=== PATIENT | female | born 1940 | race Caucasian/White ===

== ENCOUNTER 2018-08-18 15:36 | Inpatient (IN) ==
[2018-08-18] MEDS ORDERED: Ondansetron 4 MG/2 ML VIAL IVP PRN (20:58)
[2018-08-18] MEDS ORDERED: Ketorolac 15 MG/ML VIAL IVP PRN (20:58)
[2018-08-18] MEDS ORDERED: Ketorolac 30 MG/ML VIAL IVP PRN (20:58)
[2018-08-18] MEDS ORDERED: Naloxone 0.4 MG/ML INJ IVP PRN (20:58)
--- NOTE | 2018-08-18 21:37 | Internal Med History&Physical ---
Date of Encounter: 08/18/18 Time of Encounter: 20:30 Internal Medicine - H&P: HPI Chief complaint: Left hip fracture Admitted From: Emergency Dept Plans for Post Hospital Care: Home History of present illness: Ms. Palacios is a 77 year old female Patient was playing pickle ball this afternoon when she went for the ball rotated on her left leg and fell on her left side. She had immediate pain upon trying to get up, an ambulance was called to transport her to the [place] emergency room. At the [place] ER, patient's initial vital signs were within normal limits, CBC and BMP as well as INR were also within normal limits. Urinalysis was negative for infection. Chest x-ray showed no acute abnormality, and left hip/femur x-ray revealed acute intertrochanteric fracture of the left hip. The x-ray also demonstrated severe degenerative changes in the left hip. Atherosclerotic calcifications are present. EKG showed sinus rhythm with no acute ischemic changes. Dr. Rincon of orthopedic surgery was notified, and agreed to see the patient in the morning. Patient was transferred to [facility] for further management. Upon my evaluation, patient is resting comfortably in the hospital bed in no ac veronique distress. Her is at bedside. She confirms the history above, stating that she recently got into [employer] ball, and she has had previous operations on her foot. She did not hit her head when she fell and she denies other injuries. She has a past medical history of osteoarthritis, but otherwise does not take medications and has no other medical problems. She denies chest pain, abdominal pain, nausea, vomiting, diarrhea and constipation. She denies significant family history, but osteoarthritis is present in multiple other family members. She is a full code. Past Med Surg Social Fam HX - Past Medical History Medical history: osteoporosis, thyroid disease Psychiatric history: no psych history - Past Surgical History Additional surgical history: MULTIPLE ORTHO SURGERIES ON RT FOOT/TOES/HEEL. - Social History Smoking Status: Never smoker Alcohol use: none Drug use: none Internal Medicine - H&P: Meds Levothyroxine [Synthroid] 0.5 mcg PO Q48H 08/18/18 [History] Allergy/AdvReac Type Severity Reaction Status Date / Time cinnamon Allergy Difficulty Verified 08/18/18 14:40 Breathing latex Allergy Difficulty Verified 08/18/18 14:40 Swallowing All Systems PM: A 10-system review of systems was performed and is negative for pertinent findings except as documented above in the HPI. - Constitutional Vitals: Temp Pulse Resp BP Pulse Ox 98.2 F 60 17 135/74 97 08/18/18 20:13 08/18/18 20:13 08/18/18 20:13 08/18/18 20:13 08/18/18 20:13 General appearance: Present: cooperative, A&O X 3, pleasant, no acute distress, answers questions appropriately Exam: - - Head Head exam: Present: normal inspection - Eye Eye exam: Present: EOMI, normal appearance - Respiratory Respiratory exam: Absent: CTAB, rales, respiratory distress, rhonchi, wheezes - Cardiovascular Cardiovascular exam: Present: RRR. Absent: diastolic murmur, systolic murmur - GI/Abdominal GI/Abdominal exam: Present: normal bowel sounds, soft. Absent: tenderness - Extremities Exam Extremities exam: Present: tenderness, warm, radial pulses palpable and symmetrical. Absent: calf tenderness, pedal edema Additional comments: Left lateral hip tenderness Pulses and sensation intact bilaterally lower extremities - Neurological Exam Neurological exam: Present: no focal deficits, strengths equal and symetr throughout. Absent: motor sensory deficit, facial droop, speech deficit - Skin Skin exam: Present: dry, normal color, warm - Assessment and Plan (1) Fracture, intertrochanteric, left femur Current Visit: No Status: Acute Assessment and plan: patient was playing pickle ball, fell on left side, resulting in a fracture of the left hip. X-ray confirms fracture, also demonstrated severe degenerative changes of the hip as well. Orthopedic surgery was called from the ER. Follow up orthopedic surgery recommendations NPO after midnight Pain management as need. Patient prefers non-narcotic pain meds Qualifiers: Encounter type: initial encounter Fracture type: closed Fracture alignment: displaced Qualified Code(s): S72.142A - Displaced intertrochanteric fracture of left femur, initial encounter for closed fracture (2) Osteoarthritis Current Visit: Yes Status: Acute Assessment and plan: Takes naproxen at home. Continue to monitor Qualifiers: Osteoarthritis location: hip Osteoarthritis type: primary Laterality: unspecified laterality Qualified Code(s): M16.10 - Unilateral primary oste oarthritis, unspecified hip (3) DVT prophylaxis Current Visit: Yes Status: Acute Assessment and plan: SCDs - Time Spent With Patient Total time spent is greater than 50% in coordination of care (as documented) at patient's floor/unit and/or counseling patient: Greater than 35 minutes
[2018-08-18] MEDS ORDERED: 0.9 % Sodium Chloride 1,000 ML IVC ONE (21:50)
[2018-08-19 07:06] LABS: Hematocrit 32.7 % (35.3-44.9); Mean Corpuscular HGB Conc 33.6 g/dL (31.6-35.5); Mean Corpuscular Volume 95.1 fL (83.0-100.0); Mean Platelet Volume 8.7 fL (9.4-12.4); Platelet Count 221 K/mcL (140-400); Red Blood Count 3.44 M/mcL (3.82-4.97); Red Cell Distribution Width 12.9 % (11.5-14.5)
[2018-08-19 07:20] LABS: Prothrombin Time 11.7 Seconds (9.4-12.1)
[2018-08-19 07:25] LABS: BUN/Creatinine Ratio 31 (6-26); Blood Urea Nitrogen 14 mg/dL (8-23); Calcium 8.8 mg/dL (8.6-10.3); Carbon Dioxide 24 mEq/L (23-29); Chloride 107 mEq/L (98-107); Glucose 100 mg/dL (70-105); Osmolality,Calculated 285 (280-300); Potassium 3.8 mEq/L (3.5-5.1); Sodium 137 mEq/L (136-145); eGFR For Non-African Americans > 60 (> 60)
[2018-08-19] MEDS ORDERED: *HR* Propofol 200 MG/20 ML VIAL IVP ONE (07:50)
[2018-08-19] MEDS ORDERED: *HR* Midazolam HCl 2 MG/2 ML VIAL ONE (07:50)
[2018-08-19] MEDS ORDERED: *HR* FentaNYL (PF) 100 MCG/2 ML VIAL ONE (07:50)
[2018-08-19] MEDS ORDERED: *HR* Rocuronium Bromide 50 MG/5 ML VIAL ONE (07:52)
[2018-08-19] MEDS ORDERED: Dexamethasone 4 MG/ML VIAL ONE (07:52)
[2018-08-19] MEDS ORDERED: Lidocaine -MPF 1% 5 ML AMPUL ONE (07:52)
[2018-08-19] MEDS ORDERED: *HR* Succinylcholine 200 MG/10 ML VIAL IVP ONE (07:52)
[2018-08-19] MEDS ORDERED: Ondansetron 4 MG/2 ML VIAL ONE (07:52)
[2018-08-19] MEDS ORDERED: Lidocaine -MPF 4% 5 ML AMPUL ONE (07:54)
--- NOTE | 2018-08-19 07:58 | Anesthesia Evaluation PreOp ---
Date of Encounter: 08/19/18 Time of Encounter: 07:56 - Past History Planned Operation: Left hip TFN Cardiac History: Denies any Significant Hx Pulmonary History: Denies Any Significant HX [employer] History: Denies Any Significant HX Other Medical History: Thyroid, Other (osteoporosis, osteoarthritis) Anesthesia History: No Prior Anesthetic Complications, Past Anesthesia (ortho paedic surgery on foot, inguinal hernia repair, tonsillectomy, eye surgeryf) Alcohol Use: none Drug use: none Medications and Allergies Levothyroxine [Synthroid] 0.5 mcg PO Q48H 08/18/18 [History] Allergy/AdvReac Type Severity Reaction Status Date / Time bacitracin Allergy Swelling Verified 08/19/18 08:43 of the Eye cinnamon Allergy Difficulty Verified 08/18/18 14:40 Breathing latex Allergy Difficulty Verified 08/18/18 14:40 Swallowing - Meds/Allergy Pre-op Review Medications Reviewed: Yes Allergies Reviewed: Yes Beta Blockers on Current Med List: No Anesthesia Results - Labs 08/19/18 06:57 08/19/18 06:57 - Imaging EKG: report reviewed Chest x-ray: image reviewed (SR with first degree AVB; pattern consistent with pulmonary disease; left anterior fasicular block; septal [place] indeterminate age) Anesthesia Exam Last Vital Signs Temp 98.5 F 08/19/18 06:41 Pulse 59 08/19/18 06:41 Resp 15 08/19/18 06:41 BP 124/71 08/19/18 06:41 Pulse Ox 99 08/19/18 06:41 Weight: 61 kg NPO (# of Hours): > 8 hrs - HEENT Pupil (Motor): Pupils equal, EOMI Mallampati: III Teeth: Normal Oral Opening: Greater than 3 - [employer] LOC: Oriented - Cardiac Rhythm: Regular Murmur: None - Pulmonary Breath Sounds: bilateral Clear Respiratory Effort: Symmetrical Anesthesia Assess/Plan ASA Score: 2 Level of consciousness: Cooperative Anesthetic Plan: General Monitoring Plan: Standard Monitors Recovery Plan: PACU
--- NOTE | 2018-08-19 08:05 | Internal Med Progress Note ---
<PandaManuela M - Last Filed: 08/19/18 12:16> Hospitalist Progress Note - Encounter Date of Encounter: 08/19/18 - Exam Vitals: Temp Pulse Resp BP Pulse Ox 97.9 F 68 15 109/46 94 08/19/18 11:33 08/19/18 11:33 08/19/18 11:33 08/19/18 11:33 08/19/18 11:33 - Time Spent with Patient Total time spent is greater than 50% in coordination of care (as documented) at patient's floor/unit and/or counseling patient: Internal Medicine: Result - Labs CBC & Chem 7: 08/19/18 06:57 08/19/18 06:57 Labs: Short CBC 08/19/18 Range/Units 06:57 WBC 6.9 (4.3-11.1) K/mcL Hgb 11.0 L D (11.5-15.4) g/dL Hct 32.7 L (35.3-44.9) % Plt Count 221 (140-400) K/mcL BMP 08/19/18 06:57 Sodium 137 Potassium 3.8 Chloride 107 Carbon Dioxide 24 BUN 14 Creatinine 0.45 L Glucose 100 Calcium 8.8 - ABG Interpretation ABG results: PT/INR, D-dimer PT 11.7 Seconds (9.4-12.1) 08/19/18 06:57 - Impressions Impressions Fluoroscopy 08/19/18 09:50 IMPRESSION: 1. See above. D/ / Wilber Beaulieu MD / Wilber Beaulieu MD Interpreting Provider: Wilber Beaulieu MD Consult Discharge Plan - Plan Referrals: Shantell Bryson, PERSONAL PROPERTY ASSESSOR [Primary Care Provider] - - Attending Attestation I examined this patient and my medical decision-making was reviewed with the Resident Physician Dr Elliott. I agree with the documented findings, disposition and treatment plan as described except to the extent set forth below. Mrs Palacios is admitted for left hip fracture requiring surgical intervention awake, very pleasant, at bedside. She has pain left hip but tolerable and resting comfortably. no history of cp, pressure, palpitations or sob. was playing a very aggressive gme of pickle ball when fall occurred. she will go to OR this morning gen- alert, awake,appears stated age eyes- pupils equal round cv- reg rate and rhythm, normal s1,s2, no murmurs appreciated, no le edema, warm ext lungs- ctabl, no wheezing, rhonchi or crackles, normal reps effort abd- soft, non tender, non distended, + bs msk- left leg shortened and rotated neuro- AAOx3, CN grossly intact, no focal deficits Left Hip fracture -to OR with ortho today, prn pain control, post op care as per ortho Pre op risk assessment EKG reviewed >10 mets activity without symptoms RCRI zero points/class I risk, no further work up is recommended pre operatively OA- on nsaid at home Acute blood loss anemia pre operatively Hgb 11- likely 2/2 fluids, fx, lood draws, asx, hemodynamically stable- will monitor post op further diagnoses and plan as noted by resident <Hector Elliott - Last Filed: 08/19/18 16:52> Hospitalist Progress Note - Encounter Date of Encounter: 08/19/18 Time of Encounter: 14:47 - Subjective Interval History: Patient was seen and examined at bedside this morning. She is admitted for a left hip fracture. She was seen after her surgery this morning. She reports that it went well and she is having no pain at this time. Denies, nausea, vomiting, chest pain, KWAME, numbness, tingling. - Exam Vitals: Temp Pulse Resp BP Pulse Ox 98.5 F 59 15 124/71 99 08/19/18 06:41 08/19/18 06:41 08/19/18 06:41 08/19/18 06:41 08/19/18 06:41 Exam: Gen.: Vitals noted. No acute distress. AAOx3, sitting comfortably at bedside. HEENT: PERRL/EOMI, oropharynx clear, Normocephalic, atraumatic, MMM Cardiac: RRR, no murmur, +S1/S2, No BLE edema Pulmonary: CTA bilaterally, no wheezes, rales or rhonchi, equal chest expansion, unlabored breathing Abdomen: soft, nontender, BS noted, no guarding, no palpable HSM Skin: warm and dry, no visible lesions. Dressing clean and dry. MSK: ROM intact, no joint swelling noted, gait no assessed while in bed. Non tender calf or clubbing Neuro: A&Ox3, moves all extremities, no focal deficits, sensation intact, Psych: Appropriate mood and behavior, AOx3 - Assessment and Plan (1) Fracture, intertrochanteric, left femur Current Visit: Yes Status: Acute Assessment and Plan: - POD #0 for left hip cephalomedullary nail of left hip following mechanical injury - Tolerated surgery well. - No pain at this time, has PRN meds - PT/OT consulted, will eval to determine placement - Ortho following. - Will trend labs in the morning. (2) Anemia Current Visit: Yes Status: Acute Assessment and Plan: - Acute drop from 12.6 to 11.0 - Suspect that this is dilutional. No obvious bleeding on exam - Asymptomatic - Will continue to monitor after surgery - Transfuse as necessary - On lovenox per Ortho (3) Osteoarthritis Current Visit: Yes Status: Acute Assessment and Plan: PRN meds as above (4) DVT prophylaxis Current Visit: Yes Status: Acute Assessment and Plan: lovenox - Time Spent with Patient Total time spent is greater than 50% in coordination of care (as documented) at patient's floor/unit and/or counseling patient: Internal Medicine: Result - Labs CBC & Chem 7: 08/19/18 06:57 08/19/18 06:57 Labs: Short CBC 08/19/18 Range/Units 06:57 WBC 6.9 (4.3-11.1) K/mcL Hgb 11.0 L D (11.5-15.4) g/dL Hct 32.7 L (35.3-44.9) % Plt Count 221 (140-400) K/mcL BMP 08/19/18 06:57 Sodium 137 Potassium 3.8 Chloride 107 Carbon Dioxide 24 BUN 14 Creatinine 0.45 L Glucose 100 Calcium 8.8 - ABG Interpretation ABG results: PT/INR, D-dimer PT 11.7 Seconds (9.4-12.1) 08/19/18 06:57 <LexiHector - Last Filed: 08/19/18 16:52> (1) Fracture, intertrochanteric, left femur Qualifiers: Encounter type: initial encounter Fracture type: closed Fracture alignment: displaced Qualified Code(s): S72.142A - Displaced intertrochanteric fracture of left femur, initial encounter for closed fracture (2) Anemia Qualifiers: Anemia type: unspecified type Qualified Code(s): D64.9 - Anemia, unspecified (3) Osteoarthritis Qualifiers: Osteoarthritis location: hip Osteoarthritis type: primary Laterality: unspecified laterality Qualified Code(s): M16.10 - Unilateral primary osteoarthritis, unspecified hip
[2018-08-19] MEDS ORDERED: Acetaminophen IV 1,000 MG/100 ML INFUS..BTL ONE (08:42)
--- NOTE | 2018-08-19 08:55 | History & Physical Report ---
Date of Encounter: 08/19/18 Time of Encounter: 08:55 24 Hour HP Update - Instructions Instructions: If the History and Physical is less than 30 days old and was completed prior to A.M. admission and or procedure and has NOT been updated on calendar day of procedure please complete this update prior to performing procedure. - Update Patient reports changes in Medical Condition: No Changes in examination, assessment, or condition: No Changes in Medication: No Preop tests/diagnostics Reviewed: Yes Surgery Remains Indicated: Yes Consent for Planned Operative Procedure(s) Verified: Yes
[2018-08-19] MEDS ORDERED: EPHEDrine 50 MG/ML VIAL ONE (09:52)
[2018-08-19] MEDS ORDERED: ceFAZolin 2,000 MG in Water for inj. (sterile) 20 ML IVP ONE (10:08)
--- NOTE | 2018-08-19 10:52 | Orthopedic Consult Note ---
Date of Encounter: 08/19/18 Time of Encounter: 10:51 Assessment and Plan (1) Fracture, intertrochanteric, left femur Current Visit: No Status: Acute After discussing the pros and cons of treatment options including non-operative and operative intervention with the patient, to allow for early mobility and pain control, they have elected to proceed with left hip cephalomedullary nail at this time. The risks and benefits of the procedure were fully explained in detail, including but not limited to the risk of infection, neurovascular injury, continued pain or stiffness, failure of surgery, reinjury, or need for additional surgery, DVT, PE, general risks of anesthesia and loss of limb or life. No guarantees were given or implied and all questions were answered. The patient understands all the risks and does wish to proceed with written consent. Surgery will be scheduled in a timely manner. Qualifiers: Encounter type: initial encounter Fracture type: closed Fracture alignment: displaced Qualified Code(s): S72.142A - Displaced intertrochanteric fracture of left femur, initial encounter for closed fracture History of Present Illness HPI: Ms. Palacios is a 77 year old female with PMHx of OA who was playing Phan[employer] ball this afternoon when she went for the ball rotated on her left leg and fell on her left side. She had immediate pain upon trying to get up, an ambulance was called to transport her to the [place] emergency room. At the [place] ER left hip/femur x-ray revealed acute intertrochanteric fracture of the left hip. Patient was transferred to [facility] for further management. She denies chest pain, SOB or LOC or any head injury. Past Med Surg Social Fam HX - Past Medical History Medical history: osteoporosis, thyroid disease Psychiatric history: no psych history - Past Surgical History Additional surgical history: MULTIPLE ORTHO SURGERIES ON RT FOOT/TOES/HEEL. - Social History Smoking Status: Never smoker Alcohol use: none Drug use: none Medications and Allergies Levothyroxine [Synthroid] 0.5 mcg PO Q48H 08/18/18 [History] Allergy/AdvReac Type Severity Reaction Status Date / Time bacitracin Allergy Swelling Verified 08/19/18 08:43 of the Eye cinnamon Allergy Difficulty Verified 08/18/18 14:40 Breathing latex Allergy Difficulty Verified 08/18/18 14:40 Swallowing All Systems Reviewed: The remainder of the systems were reviewed and are negative except as noted in the HPI Physical Exam - Constitutional Vitals: Temp Pulse Resp BP Pulse Ox 98.5 F 59 15 124/71 99 08/19/18 06:41 08/19/18 06:41 08/19/18 06:41 08/19/18 06:41 08/19/18 06:41 Exam: Consult Exam: Constitutional -Vitals reviewed -The patient is well developed and well nourished. -Mood is pleasant. -The patient is well groomed. Psychiatric -The patient is fully alert and oriented x 3. Respiratory: -Respiratory effort normal Abdomen: -Soft abdomen -Non tender -Non distended: Left upper extremity: -No deformities. The overlying skin is intact. No obvious signs of acute tr auma. -No tenderness to palpation throughout. -No significant pain with passive motion of the shoulder, elbow, wrist, and fingers within the limits of the bed. -Able to make an "OK" sign, cross the index and long fingers, and extend the thumb. -Sensation grossly intact to light touch throughout the median, radial, and ulnar distributions. -Radial pulse is present; Fingers have good capillary refill. Right upper extremity: -No deformities. The overlying skin is intact. No obvious signs of acute trauma. -No tenderness to palpation throughout. -No significant pain with passive motion of the shoulder, elbow, wrist, and fingers within the limits of the bed. -Able to make an "OK" sign, cross the index and long fingers, and extend the thumb. -Sensation grossly intact to light touch throughout the median, radial, and ulnar distributions. -Radial pulse is present; Fingers have good capillary refill. Left lower extremity: -Hip short and externally rotated. Tender to palpation over lateral hip. -Pain with logroll and internal rotation. -Able to dorsiflex and plantarflex the ankle and toes. -Sensation is grossly intact to light touch throughout the sural, saphenous, superficial peroneal, and deep peroneal distributions. -Toes have good capillary refill. Right lower extremity: -No deformities. The overlying skin is intact. No obvious signs of acute trauma. -No tenderness to palpation throughout. -No pain with passive motion of the hip, knee, ankle, and toes within the limits of the bed. -No pain with axial loading of the thigh. -Able to dorsiflex and plantarflex the ankle and toes. -Sensation is grossly intact to light touch throughout the sural, saphenous, superficial peroneal, and deep peroneal distributions. -Toes have good capillary refill. Results - Labs Result Diagrams: 08/19/18 06:57 08/19/18 06:57 Labs: Abnormal lab results RBC 3.44 M/mcL (3.82-4.97) L 08/19/18 06:57 Hgb 11.0 g/dL (11.5-15.4) L D 08/19/18 06:57 Hct 32.7 % (35.3-44.9) L 08/19/18 06:57 MPV 8.7 fL (9.4-12.4) L 08/19/18 06:57 0.45 mg/dL (0.60-1.20) L 08/19/18 06:57 31 (6-26) H 08/19/18 06:57 H & H 08/19/18 Range/Units 06:57 Hgb 11.0 L D (11.5-15.4) g/dL Hct 32.7 L (35.3-44.9) % All other labs normal. - Diagnostic results Hip x-ray: report reviewed, image reviewed (Left hip minimally displaced intertrochanteric fracture.) Consult Discharge Plan - Plan Referrals: Shantell Bryson, ANA [Primary Care Provider] -
--- NOTE | 2018-08-19 11:22 | Anesthesia Evaluation Post Op ---
Date of Encounter: 08/19/18 Time of Encounter: 11:21 - Vital Signs Vital Signs: Last Vital Signs Temp 98.4 F 08/19/18 11:13 Pulse 69 08/19/18 11:13 Resp 16 08/19/18 11:13 BP 138/72 08/19/18 11:05 Pulse Ox 99 08/19/18 11:05 - Lungs Lungs: Clear Ascult./Percussion - Airway Airway: Non-obstructed - Cardiovascular Regular Rate - Mental Status Mental Status: Alert & Oriented, Answers Appropriately - Pain Pain Scale: 1 - Nausea Vomiting Nausea Vomiting: Not Present - Hydration Hydration: NPO - Discharge PostOp Status: Transfer Patient to floor
--- NOTE | 2018-08-19 13:27 | Orthopedic Operative Note ---
Date of procedure: 08/19/18 Procedure: Procedure: Left hip cephalomedullary nail Preoperative diagnosis: Left hip intertrochanteric fracture Postoperative diagnosis: Same Surgeon: Jude Rincon MD Anesthesia: General EBL: 100 cc Complications: None Components used: Synthes TFNA 10 x 170 mm/130 degree nail, 95 mm helical blade, 5.0 x 30 mm locking screw Indications: This is an 77 yo female who sustained a mechanical fall onto her left side, causing her left hip pain and deformity. She was brought to an outside emergency department and imaging confirmed a left hip intertrochanteric fracture, she was then transferred to our facility for definitive management. After discussing the procedure at length, the patient elected for operative management with a cephalomedullary nail of the left hip. The risks and benefits the procedure were fully explained. Those risks included but are not limited to, infection, neurovascular injury, continued pain, arthritis, stiffness, further injury, need for further surgery, DVT, PE, loss of limb, and loss of life. The patient understood all these risks and wished to proceed. Informed consent was obtained. No guarantees were stated or implied. Operative report: The patient was assessed and cleared by the medical group prior to surgery. Patient was brought to the holding area. Left lower extremity was marked, the patient was taken to the operating room, general anesthetic was administered and she was transferred to the hospital bed. The patient's head, neck and airway were protected by anesthesia throughout the case. The patient was then transferred to the fracture table and placed in supine position with a well padded perineal post. All bony prominences were well-padded. Left leg was attached to traction device and the fracture bed. The right leg was then placed in a well leg jones and positioned out of the way of fluoroscopy. We then utilized fracture table to reduce the fracture and obtained fluoroscopic images in AP and lateral planes confirming alignment. The left lower extremity was then prepped and draped in the normal sterile orthopedic fashion. Preoperative antibiotics were given prior to incision. A surgical time out protocol was then performed. We then made an incision just proximal to the greater trochanter. We dissected down through the IT band sharply. We were then able to palpate the greater trochanter and we placed a guidepin in the appropriate starting position on the greater trochanter. We advanced the guidepin into the proximal femur and then confirmed the position in both AP and lateral planes. After confirming acceptable pin placement at the tip of the greater trochanter, we advanced the pin to the level of the lesser trochanter. We then utilized an entry reamer over the pin to open up the canal. We then placed a size 10 mm 130 degree Synthes TFNA short nail over the guide pin. We manually advanced the nail to the appropriate depth taking care to avoid any further injury to the bone. When the nail was at the appropriate depth we used the outrigger to place a guidepin for the compression blade into the femoral head. We confirmed the location of the pin on both AP and lateral x-rays. We then overdrilled the pin and placed the 95 mm blade. We then locked the nail proximally and utilized the outrigger for compression across the fracture site. After confirming acceptable alignment of the fracture, we then used the outrigger to place a distal locking screw from lateral to medial. At this point we obtained final fluoroscopic images of the left hip and femur in both AP and lateral planes. We then thoroughly irrigated the wounds and closed the IT band with 0 Vicryl. Subcutaneous tissue was closed with 2-0 strata fix, skin was closed with 3-0 strata fix and then zip line. Sterile dressing was placed, the patient was woken by anesthesia and taken transferred to PACU in stable condition. Patient tolerated procedure well with no issues. Postop plan: Patient will be transferred back to the floor and will be weight- bearing as tolerated of left lower extremity with physical therapy pos toperatively. Patient is on DVT prophylaxis per the hospitalist group. Was there an bacteriology research assistant present: No Estimated blood loss (cc): 100
[2018-08-19] MEDS ORDERED: *HR* HYDROcodone/Acet 5/325 mg TABLET PO PRN (14:15)
[2018-08-19] MEDS ORDERED: Acetaminophen 325 MG TABLET PO PRN (14:15)
[2018-08-19] MEDS ORDERED: traMADol 50 MG TABLET PO PRN (14:15)
[2018-08-19] MEDS: *HR* Enoxaparin 30 MG/0.3 ML SYRINGE SQ SCH (17:46)
[2018-08-20 02:59] LABS: Basophils % 0.1 %; Hematocrit 29.1 % (35.3-44.9); Hemoglobin 9.7 g/dL (11.5-15.4); Immature Granulocytes % 0.6 % (0-4); Lymphocytes # 1.5 K/mcL (0.6-4.6); Lymphocytes % 17.4 %; Mean Corpuscular HGB Conc 33.3 g/dL (31.6-35.5); Mean Corpuscular Hemoglobin 32.1 pg (28.0-33.3); Mean Corpuscular Volume 96.4 fL (83.0-100.0); Mean Platelet Volume 9.2 fL (9.4-12.4); Monocytes # 0.9 K/mcL (0.0-1.3); Monocytes % 10.2 %; Neutrophils # 6.2 K/mcL (1.6-8.9); Platelet Count 230 K/mcL (140-400); Red Blood Count 3.02 M/mcL (3.82-4.97); Red Cell Distribution Width 13.2 % (11.5-14.5); Segmented Neutrophils % 71.7 %
[2018-08-20] MEDS: *HR* Enoxaparin 30 MG/0.3 ML SYRINGE SQ SCH ×2 (06:01→18:28)
[2018-08-20] MEDS: Levothyroxine 25 MCG TABLET PO SCH (06:11)
--- NOTE | 2018-08-20 08:32 | Orthopedics Progress Note ---
Date of Encounter: 08/20/18 Time of Encounter: 08:31 - Assessment and Plan (1) Fracture, intertrochanteric, left femur Current Visit: Yes Status: Acute Qualifiers: Encounter type: initial encounter Fracture type: closed Fracture alignment: displaced Qualified Code(s): S72.142A - Displaced intertrochanteric fracture of left femur, initial encounter for closed fracture Subjective Interval history: No overnight issues. Pain is controlled. No nausea/vomiting. No CP/SOB. Vitals reviewed Extremity exam: Dressing clean, dry and intact No erythema or drainage Distally neurovascularly intact to motor/sensory exam No calf pain or tenderness s/p L hip IMN Continue current management PO pain and nausea control Up with PT Discharge planning Objective Vital signs: Vital Signs Temp Pulse Resp BP Pulse Ox 08/20/18 06:59 98 F 68 16 147/78 95 08/20/18 03:13 98.8 F 72 18 130/70 96 08/19/18 23:25 98.8 F 74 18 113/68 93 08/19/18 18:55 98.6 F 71 16 114/69 95 08/19/18 15:58 98.2 F 71 18 116/69 95 08/19/18 14:30 65 16 128/66 95 08/19/18 13:30 65 16 132/73 98 08/19/18 12:30 58 16 146/72 98 08/19/18 12:00 69 14 132/62 96 08/19/18 11:33 97.9 F 68 15 109/46 94 08/19/18 11:15 98.4 F 69 16 138/80 98 08/19/18 11:05 68 16 138/72 99 08/19/18 10:55 68 16 144/68 100 08/19/18 10:45 100.7 F H 75 14 150/72 92 Intake and Output 08/19/18 08/20/18 08/20/18 23:59 07:59 15:59 Intake Total 340 / 580 150 / 150 Output Total 1000 / 1550 400 / 400 Balance -660 / -970 -250 / -250 Intake: IV Fluids 100 / 100 Ancef 2,000 MG In 0.9 % Sodium 100 / 100 Chloride 100 ML @ 200 mls/hr IVPB Q8H [facility] Rx#:[id number] Oral 240 / 480 150 / 150 Output: Catheter 1000 / 1350 400 / 400 Other: Meal Dinner Percent of Meal Consumed 100% # Voids 1 Weight 62.2 kg Patient Weight 08/20/18 23:59 Weight 62.2 kg - Labs CBC & BMP: 08/20/18 02:20 08/19/18 06:57 Labs: Abnormal lab results RBC 3.02 M/mcL (3.82-4.97) L 08/20/18 02:20 Hgb 9.7 g/dL (11.5-15.4) L 08/20/18 02:20 Hct 29.1 % (35.3-44.9) L 08/20/18 02:20 MPV 9.2 fL (9.4-12.4) L 08/20/18 02:20 0.45 mg/dL (0.60-1.20) L 08/19/18 06:57 31 (6-26) H 08/19/18 06:57 Consult Discharge Plan - Plan Referrals: Shantell Bryson, F[employer]ECUT[employer] OFFICER [Primary Care Provider] -
[2018-08-20] MEDS ORDERED: Ibuprofen 400 MG TABLET PO PRN (09:37)
--- NOTE | 2018-08-20 13:18 | Internal Med Progress Note ---
<Manuela Mosqueda - Last Filed: 08/20/18 13:40> Hospitalist Progress Note - Encounter Date of Encounter: 08/20/18 - Exam Vitals: Temp Pulse Resp BP Pulse Ox 98.3 F 71 16 143/80 96 08/20/18 10:30 08/20/18 10:30 08/20/18 10:30 08/20/18 10:30 08/20/18 10:30 - Time Spent with Patient Total time spent is greater than 50% in coordination of care (as documented) at patient's floor/unit and/or counseling patient: Internal Medicine: Result - Labs CBC & Chem 7: 08/20/18 02:20 08/19/18 06:57 Labs: Short CBC 08/20/18 Range/Units 02:20 WBC 8.6 (4.3-11.1) K/mcL Hgb 9.7 L (11.5-15.4) g/dL Hct 29.1 L (35.3-44.9) % Plt Count 230 (140-400) K/mcL Neutrophils # 6.2 (1.6-8.9) K/mcL - ABG Interpretation ABG results: PT/INR, D-dimer PT 11.7 Seconds (9.4-12.1) 08/19/18 06:57 Consult Discharge Plan - Plan Referrals: Shantell Bryson, RECORD CUTTER [Primary Care Provider] - - Attending Attestation I examined this patient and my medical decision-making was reviewed with the Resident Physician Dr Elliott. I agree with the documented findings, disposition and treatment plan as described except to the extent set forth below. Mrs Palacios is admitted for left hip fracture requiring surgical intervention 08/19 awake, very pleasant, at bedside. pain is tolerable, she declines any opiates and requesting motrin. initially declined lovenox for vte ppx but after further discussion is agreeable. she has no complaints. ambulated with RN to bedside commode today. no presyncope. no fatigue gen- alert, awake,appears stated age cv- reg rate and rhythm, no le edema, warm ext lungs- ctabl, no wheezing, rhonchi or crackles, normal reps effort on room air skin- left hip dressing, c/d/i without ecchymosis to ext neuro- AAOx3 Left Hip fracture s/p IMN 08/19/18 -prn pain control, WBAT, pt/ot, rec for swing bed OA- on nsaid at home Acute blood loss anemia pre operatively Hgb 11 with now component of post operative blood loss anemia- hemodynamically stable- will cont to monitor post op further diagnoses and plan as noted by resident <Hector Elliott - Last Filed: 08/20/18 16:33> Hospitalist Progress Note - Encounter Date of Encounter: 08/20/18 Time of Encounter: 09:23 - Subjective Interval History: Patient was seen and examined at bedside this morning. She reports that she tolerated surgery well without complications. Pain is well-controlled this time on naproxen that she had this evening. Denies any numbness, tingling, fevers, chills, shortness breath, cough - Exam Vitals: Temp Pulse Resp BP Pulse Ox 98.3 F 71 16 143/80 96 08/20/18 10:30 08/20/18 10:30 08/20/18 10:30 08/20/18 10:30 08/20/18 10:30 Exam: Gen.: Vitals noted. No acute distress. AAOx3, sitting comfortably in bed HEENT: PERRL/EOMI, oropharynx clear, Normocephalic, atraumatic, MMM Cardiac: RRR, no murmur, +S1/S2, No BLE edema Pulmonary: CTA bilaterally, no wheezes, rales or rhonchi, equal chest expansion, unlabored breathing Abdomen: soft, nontender, BS noted, no guarding, no palpable HSM Skin: warm and dry, no visible lesions. Dressing clean and dry. MSK: ROM intact, no joint swelling noted, gait no assessed while in bed. Non t tamiko calf or clubbing Neuro: A&Ox3, moves all extremities, no focal deficits, sensation intact, Psych: Appropriate mood and behavior, AOx3 - Assessment and Plan (1) Fracture, intertrochanteric, left femur Current Visit: Yes Status: Acute Assessment and Plan: - POD #1 for left hip cephalomedullary nail of left hip following mechanical injury - Tolerated surgery well. - No pain at this time, has PRN meds - requesting only nsaid, will provide and monitor for signs of bleed - PT/OT consulted, will eval to determine placement - Ortho following. - Will trend labs in the morning. (2) Osteoarthritis Current Visit: Yes Status: Acute Assessment and Plan: PRN meds as above (3) Anemia Current Visit: Yes Status: Acute Assessment and Plan: - Acute drop from 12.6 to 9.7 - Suspect that this is dilutional with some post operative loss. No obvious bleeding on exam - Asymptomatic - Will continue to monitor - Transfuse as necessary - On lovenox per Ortho (4) DVT prophylaxis Current Visit: Yes Status: Acute Assessment and Plan: lovenox, patient agreeable - Time Spent with Patient Total time spent is greater than 50% in coordination of care (as documented) at patient's floor/unit and/or counseling patient: Internal Medicine: Result - Labs CBC & Chem 7: 08/20/18 02:20 08/19/18 06:57 Labs: Short CBC 08/20/18 Range/Units 02:20 WBC 8.6 (4.3-11.1) K/mcL Hgb 9.7 L (11.5-15.4) g/dL Hct 29.1 L (35.3-44.9) % Plt Count 230 (140-400) K/mcL Neutrophils # 6.2 (1.6-8.9) K/mcL - ABG Interpretation ABG results: PT/INR, D-dimer PT 11.7 Seconds (9.4-12.1) 08/19/18 06:57 ___ <Hector Elliott - Last Filed: 08/20/18 16:33> (1) Fracture, intertrochanteric, left femur Qualifiers: Encounter type: initial encounter Fracture type: closed Fracture alignment: displaced Qualified Code(s): S72.142A - Displaced intertrochanteric fracture of left femur, initial encounter for closed fracture (2) Osteoarthritis Qualifiers: Osteoarthritis location: hip Osteoarthritis type: primary Laterality: unspecified laterality Qualified Code(s): M16.10 - Unilateral primary osteoarthritis, unspecified hip (3) Anemia Qualifiers: Anemia type: unspecified type Qualified Code(s): D64.9 - Anemia, unspecified
[2018-08-21 02:47] LABS: Basophils % 0.3 %; Eosinophils # 0.1 K/mcL (0.0-0.6); Eosinophils % 0.9 %; Hematocrit 28.6 % (35.3-44.9); Hemoglobin 9.4 g/dL (11.5-15.4); Immature Granulocytes % 0.3 % (0-4); Lymphocytes # 1.9 K/mcL (0.6-4.6); Lymphocytes % 27.5 %; Mean Corpuscular HGB Conc 32.9 g/dL (31.6-35.5); Mean Corpuscular Hemoglobin 31.5 pg (28.0-33.3); Mean Platelet Volume 8.9 fL (9.4-12.4); Monocytes # 0.7 K/mcL (0.0-1.3); Neutrophils # 4.1 K/mcL (1.6-8.9); Platelet Count 203 K/mcL (140-400); Red Blood Count 2.98 M/mcL (3.82-4.97); Red Cell Distribution Width 13.2 % (11.5-14.5)
[2018-08-21] MEDS: *HR* Enoxaparin 30 MG/0.3 ML SYRINGE SQ SCH ×2 (06:05→18:28)
--- NOTE | 2018-08-21 09:58 | Electrocardiograph Report ---
[address] [place], [place] [address] Test Date: 2018-08-19 Pat Name: Preet Palacios Department: 114 Room: [facility] Gender: F [employer]: : 1940 Requested By: Liu Burrows Order Number: [id number] Reading MD: Marlon Lyon Measurements Intervals [place] Rate: 61 P: 50 VA: 216 QRS: -67 QRSD: 90 T: 30 QT: 409 QTc: 411 Interpretive Statements SINUS RHYTHM WITH FIRST DEGREE AV BLOCK LEFT ANTERIOR FASCICULAR BLOCK SEPTAL MYOCARDIAL INFARCTION, OF INDETERMINATE AGE Electronically Signed On 08-21-2018 9:57:05 EDT by Marlon Lyon
--- NOTE | 2018-08-21 13:23 | Internal Med Progress Note ---
<PandaManuela Roxanne - Last Filed: 08/21/18 13:48> Hospitalist Progress Note - Encounter Date of Encounter: 08/21/18 - Exam Vitals: Temp Pulse Resp BP Pulse Ox 98.0 F 66 16 125/77 97 08/21/18 11:27 08/21/18 11:27 08/21/18 11:27 08/21/18 11:27 08/21/18 11:27 - Assessment and Plan (1) Fracture, intertrochanteric, left femur Current Visit: Yes Status: Acute (2) DVT prophylaxis Current Visit: Yes Status: Acute (3) Osteoarthritis Current Visit: Yes Status: Acute (4) Anemia Current Visit: Yes Status: Acute - Time Spent with Patient Total time spent is greater than 50% in coordination of care (as documented) at patient's floor/unit and/or counseling patient: Internal Medicine: Result - Labs CBC & Chem 7: 08/21/18 02:36 08/19/18 06:57 Labs: Short CBC 08/21/18 Range/Units 02:36 WBC 6.7 (4.3-11.1) K/mcL Hgb 9.4 L (11.5-15.4) g/dL Hct 28.6 L (35.3-44.9) % Plt Count 203 (140-400) K/mcL Neutrophils # 4.1 (1.6-8.9) K/mcL - ABG Interpretation ABG results: PT/INR, D-dimer PT 11.7 Seconds (9.4-12.1) 08/19/18 06:57 - Impressions Impressions Wrist X-Ray 08/21/18 09:59 IMPRESSION: Osteopenia, soft tissue swelling, and findings suggestive of CPPD. No discrete fracture is seen though if patient has persistent symptoms or anatomic snuffbox tenderness, follow-up radiographic series in 7-10 days would be recommended given the underlying osteopenia. D/ / Liu Tavarez MD / Liu Tavarez MD Interpreting Provider: Liu Tavarez MD Consult Discharge Plan - Plan Referrals: Shantell Bryson CNP [Primary Care Provider] - - Attending Attestation I examined this patient and my medical decision-making was reviewed with the Resident Physician Dr Elliott. I agree with the documented findings, disposition and treatment plan as described except to the extent set forth below. Mrs Palacios is admitted for left hip fracture requiring surgical intervention 08/19 awake, no family present, pain is tolerable, eating/drinking, + flatus. shows me left wrist bruising, fell onto that arm during fall. denies pain with rom. no other joint injury. no presyncope, sob or fatigue. gen- alert, awake,appears stated age cv- reg rate and rhythm, no le edema, raidal pulse bl wrist intact and equal lungs- ctabl, normal reps effort on room air skin- left hip dressing, c/d/i without ecchymosis, left ventral wrist surfac with ecchymosis and edema msk- left hip rom intact and painless, no gross deformity neuro- AAOx3 Left Hip fracture s/p IMN 08/19/18 -prn pain control, WBAT, pt/ot, rec for swing bed, awaiting insurance auth- likely in next 24-48 hrs per sw Left wrist injury XR with osteopenia, no evident fracture, if develops sxs then reimage at that time as given osteopenia she is at risk for fx Acute blood loss anemia pre operatively Hgb 11 with now component of post operative blood loss anemia, hgb stable in 9s hemodynamically stable -will cont to monitor post op, is on lovenox for vte ppx further diagnoses and plan as noted by resident <Hector Elliott - Last Filed: 08/21/18 14:58> Hospitalist Progress Note - Encounter Date of Encounter: 08/21/18 Time of Encounter: 09:33 - Subjective Interval History: Patient was seen and examined at bedside this morning. She reports that she tolerated surgery well without complications. Pain is well-controlled this time. Working with physical therapy well. Denies any numbness, tingling, fevers, chills, shortness breath, cough - Exam Vitals: Temp Pulse Resp BP Pulse Ox 98.0 F 66 16 125/77 97 08/21/18 11:27 08/21/18 11:27 08/21/18 11:27 08/21/18 11:27 08/21/18 11:27 Exam: Gen.: Vitals noted. No acute distress. AAOx3, sitting comfortably in bed HEENT: PERRL/EOMI, oropharynx clear, Normocephalic, atraumatic, MMM Cardiac: RRR, no murmur, +S1/S2, No BLE edema Pulmonary: CTA bilaterally, no wheezes, rales or rhonchi, equal chest expansion, unlabored breathing Abdomen: soft, nontender, BS noted, no guarding, no palpable HSM Skin: warm and dry, no visible lesions. Dressing clean and dry. MSK: ROM intact, no joint swelling noted, gait no assessed while in bed. Non tender calf or clubbing, neurovascular intact Neuro: A&Ox3, moves all extremities, no focal deficits, sensation intact, Psych: Appropriate mood and behavior, AOx3 - Assessment and Plan (1) Fracture, intertrochanteric, left femur Current Visit: Yes Status: Acute Assessment and Plan: - POD #2 for left hip cephalomedullary nail of left hip following mechanical injury - Tolerated surgery well. - No pain at this time, has PRN meds - requesting only nsaid, will provide and monitor for signs of bleed - PT/OT consulted, will eval to determine placement - Ortho following. - Will trend cbc in the morning. (2) Osteoarthritis Current Visit: Yes Status: Acute Assessment and Plan: PRN meds as above (3) Anemia Current Visit: Yes Status: Acute Assessment and Plan: - Acute drop from 12.6 to 9.7 after surgery, now stable at 9.4 - Suspect that this is dilutional with some post operative loss. No obvious bleeding on exam - Asymptomatic - Will continue to monitor - Transfuse as necessary - On lovenox per Ortho (4) DVT prophylaxis Current Visit: Yes Status: Acute Assessment and Plan: lovenox, patient agreeable - Time Spent with Patient Total time spent is greater than 50% in coordination of care (as documented) at patient's floor/unit and/or counseling patient: Internal Medicine: Result - Labs CBC & Chem 7: 08/21/18 02:36 08/19/18 06:57 Labs: Short CBC 08/21/18 Range/Units 02:36 WBC 6.7 (4.3-11.1) K/mcL Hgb 9.4 L (11.5-15.4) g/dL Hct 28.6 L (35.3-44.9) % Plt Count 203 (140-400) K/mcL Neutrophils # 4.1 (1.6-8.9) K/mcL - ABG Interpretation ABG results: PT/INR, D-dimer PT 11.7 Seconds (9.4-12.1) 08/19/18 06:57 - Impressions Impressions Wrist X-Ray 08/21/18 09:59 IMPRESSION: Osteopenia, soft tissue swelling, and findings suggestive of CPPD. No discrete fracture is seen though if patient has persistent symptoms or anatomic snuffbox tenderness, follow-up radiographic series in 7-10 days would be recommended given the underlying osteopenia. D/ / Liu Tavarez MD / Liu Tavarez MD Interpreting Provider: Liu Tavarez MD <Manuela Mosqueda - Last Filed: 08/21/18 13:48> (1) Fracture, intertrochanteric, left femur Qualifiers: Encounter type: initial encounter Fracture type: closed Fracture alignment: displaced Qualified Code(s): S72.142A - Displaced intertrochanteric fracture of left femur, initial encounter for closed fracture (3) Osteoarthritis Qualifiers: Osteoarthritis location: hip Osteoarthritis type: primary Laterality: unspecified laterality Qualified Code(s): M16.10 - Unilateral primary osteoarthritis, unspecified hip (4) Anemia Qualifiers: Anemia type: unspecified type Qualified Code(s): D64.9 - Anemia, unspecified <Hector Elliott - Last Filed: 08/21/18 14:58> (1) Fracture, intertrochanteric, left femur Qualifiers: Encounter type: initial encounter Fracture type: closed Fracture alignment: displaced Qualified Code(s): S72.142A - Displaced intertrochanteric fracture of left femur, initial encounter for closed fracture (2) Osteoarthritis Qualifiers: Osteoarthritis location: hip Osteoarthritis type: primary Laterality: unspecified laterality Qualified Code(s): M16.10 - Unilateral primary osteoarthritis, unspecified hip (3) Anemia Qualifiers: Anemia type: unspecified type Qualified Code(s): D64.9 - Anemia, unspecified
--- NOTE | 2018-08-21 13:24 | Orthopedics Progress Note ---
Date of Encounter: 08/21/18 Time of Encounter: 13:24 - Assessment and Plan (1) Fracture, intertrochanteric, left femur Current Visit: Yes Status: Acute Qualifiers: Encounter type: initial encounter Fracture type: closed Fracture alignment: displaced Qualified Code(s): S72.142A - Displaced intertrochanteric fracture of left femur, initial encounter for closed fracture Subjective Interval history: No overnight issues. Pain is controlled. No nausea/vomiting. No CP/SOB. Vitals reviewed Extremity exam: Dressing clean, dry and intact No erythema or drainage Distally neurovascularly intact to motor/sensory exam No calf pain or tenderness s/p L hip IMN Continue current management PO pain and nausea control Up with PT Discharge planning, f/u in 2 weeks after d/c Objective Vital signs: Vital Signs Temp Pulse Resp BP Pulse Ox 08/21/18 11:27 98.0 F 66 16 125/77 97 08/21/18 06:49 98.5 F 66 14 120/72 95 08/21/18 03:06 99.0 F 69 18 134/71 96 08/20/18 23:55 98.7 F 71 16 126/70 93 08/20/18 18:53 99.1 F 73 14 128/75 95 08/20/18 14:03 98 F 79 16 134/76 95 Intake and Output 08/20/18 08/21/18 08/21/18 23:59 07:59 15:59 Intake Total 0 / 550 150 / 510 360 / 510 Output Total 150 / 400 250 / 400 Balance 0 / 150 0 / 110 110 / 110 Intake: Oral 0 / 550 150 / 510 360 / 510 Output: Urine 150 / 400 250 / 400 Other: Meal Breakfast Percent of Meal Consumed 75% # Voids 1 1 # Urine Diapers 1 Weight 63.1 kg Patient Weight 08/21/18 23:59 Weight 63.1 kg - Labs CBC & BMP: 08/21/18 02:36 08/19/18 06:57 Labs: Abnormal lab results RBC 2.98 M/mcL (3.82-4.97) L 08/21/18 02:36 Hgb 9.4 g/dL (11.5-15.4) L 08/21/18 02:36 Hct 28.6 % (35.3-44.9) L 08/21/18 02:36 MPV 8.9 fL (9.4-12.4) L 08/21/18 02:36 0.45 mg/dL (0.60-1.20) L 08/19/18 06:57 31 (6-26) H 08/19/18 06:57 Consult Discharge Plan - Plan Referrals: Shantell Bryson, ANA [Primary Care Provider] -
[2018-08-22] MEDS: Levothyroxine 25 MCG TABLET PO SCH (05:24)
[2018-08-22] MEDS: *HR* Enoxaparin 30 MG/0.3 ML SYRINGE SQ SCH (05:25)
[2018-08-22 07:03] LABS: Basophils % 0.7 %; Eosinophils # 0.1 K/mcL (0.0-0.6); Eosinophils % 2.2 %; Hematocrit 28.5 % (35.3-44.9); Hemoglobin 9.3 g/dL (11.5-15.4); Immature Granulocytes % 0.3 % (0-4); Lymphocytes % 34.1 %; Mean Corpuscular HGB Conc 32.6 g/dL (31.6-35.5); Mean Corpuscular Hemoglobin 31.5 pg (28.0-33.3); Mean Corpuscular Volume 96.6 fL (83.0-100.0); Mean Platelet Volume 9.4 fL (9.4-12.4); Monocytes # 0.6 K/mcL (0.0-1.3); Monocytes % 10.1 %; Neutrophils # 3.1 K/mcL (1.6-8.9); Platelet Count 257 K/mcL (140-400); Red Blood Count 2.95 M/mcL (3.82-4.97); Segmented Neutrophils % 52.6 %
[2018-08-22 11:24] VITALS: BP 150/84
--- NOTE | 2018-08-22 12:45 | Discharge Summary ---
<Hector Elliott - Last Filed: 08/22/18 13:22> - NOTES TO OUTPATIENT PROVIDER Notes to Outpatient Provider: Admitted for hip fracture on left with successfull cephalomedullary nail on 08/19/18. Tolerating well and with be discharged to rehab with physical therapy. Patient has been refusing lovenox DVT prophylaxis. Orders not resulted at time of discharge: Pending orders 08/19/18 09:50 XR hip complete LT [XR] Routine Date of Encounter: 08/22/18 Time of Encounter: 09:22 - Discharge Diagnosis (1) Fracture, intertrochanteric, left femur Priority: Primary Status: Acute Qualifiers: Encounter type: initial encounter Fracture type: closed Fracture alignment: displaced Qualified Code(s): S72.142A - Displaced intertrochanteric fracture of left femur, initial encounter for closed fracture (2) DVT prophylaxis Priority: Secondary Status: Acute (3) Osteoarthritis Priority: Secondary Status: Chronic Qualifiers: Osteoarthritis location: hip Osteoarthritis type: primary Laterality: unspecified laterality Qualified Code(s): M16.10 - Unilateral primary osteoarthritis, unspecified hip (4) Anemia Priority: Secondary Status: Chronic Qualifiers: Anemia type: unspecified type Qualified Code(s): D64.9 - Anemia, unspecified (5) Osteopenia Priority: Secondary Status: Chronic Qualifiers: Osteopenia location: unspecified Qualified Code(s): M85.80 - Other specified disorders of bone density and structure, unspecified site Hospital course: Ms. Palacios is a 77 year old female with past medical history of osteoporosis, hypothyroidism presenting to the emergency department with complaint of hip pain. Patient was playing pickle ball and reports that she over twisted and fell onto her hip. In the [place] emergency room, vitals and laboratory results within normal limits. Chest x-ray showed no acute or melena. X-ray of the left hip showed acute intertrochanteric fracture as well as severe degenerative changes in the left hip. EKG showed normal sinus rhythm with no acute ischemic changes. Orthopedics surgery was consult and. Patient did not successfully undergo a left hip cephalomedullary nail on 08/19/18 with no complications. She has been working with physical therapy who recommends a intermediate facility short-term stay for rehabilitation. Patient is agreeable and pain has impr antoine. She will be discharged in stable medical condition with follow-ups for orthopedic surgery. Further recommendations per physical therapy. New Medications include Lovenox which notably patient has been refusing. Discharge discussed with: patient, family, nurse, social work, case management - Time Spent with Patient Total time spent providing and/or coordinating discharge services: - Discharge Medications Prescriptions: New Enoxaparin [Lovenox] 30 mg SQ Q12HCO #10 syringe Ibuprofen [Motrin] 400 mg PO Q6HR PRN #10 tablet PRN Reason: Mild To Moderate Pain Continued Multivit-Min/Iron/Folic/Lutein [Multivitamin Women 50 Plus Tab] 1 tab PO DAILY Levothyroxine [Synthroid] 12.5 mcg PO Q72H Home Medications: Levothyroxine [Synthroid] 12.5 mcg PO Q72H 08/18/18 [History] Multivit-Min/Iron/Folic/Lutein [Multivitamin Women 50 Plus Tab] 1 tab PO DAILY 08/19/18 [History] Enoxaparin [Lovenox] 30 mg SQ Q12HCO #10 syringe 08/22/18 [Rx] Ibuprofen [Motrin] 400 mg PO Q6HR PRN #10 tablet 08/22/18 [Rx] Allergies/Adverse Reactions: Allergy/AdvReac Type Severity Reaction Status Date / Time bacitracin Allergy Swelling Verified 08/19/18 14:07 of the Eye cinnamon Allergy Difficulty Verified 08/18/18 14:40 Breathing latex Allergy Difficulty Verified 08/19/18 14:07 Swallowing Date of admission: 08/19/18 12:19 Primary care physician: Shantell Bryson CNP Consults: 08/18/18 21:46 Consult to Orthopedic Surgery [CONS] Routine Consulting Provider: Jude Rincon Reason for Consult: Left hip Fracture Call Completed: Yes 08/19/18 13:26 Consult to Physical Therapy [CONS] Routine Comment: Evaluate, develop and implement POC Reason for Consult: Status Post Fracture Does patient have active BEDREST order?: No Is patient medically & hemodynamically stable?: Yes Patient assessed for mobility or mobilized this visit?: No 08/19/18 13:27 Consult to Occupational Therapy [CONS] Routine Comment: Evaluate, develop and implement POC Reason for Consult: Status post fracture Does patient have active BEDREST order?: No Is patient medically & hemodynamically stable?: Yes Patient assessed for mobility or mobilized this visit?: No 08/20/18 19:08 Consult to [employer] [CONS] Routine Reason for SW Consult: possible rehab placement Discharging clinician: Hector Elliott Anticipated date of discharge: 08/22/18 - Constitutional Vitals: Temp Pulse Resp BP Pulse Ox 98.0 F 66 18 150/84 98 08/22/18 11:22 08/22/18 11:22 08/22/18 11:22 08/22/18 11:22 08/22/18 11:22 General appearance: Present: cooperative, A&O X 3, pleasant, no acute distress, answers questions appropriately Exam: Gen.: Vitals noted. No acute distress. AAOx3, sitting comfortably in bed HEENT: PERRL/EOMI, oropharynx clear, Normocephalic, atraumatic, MMM Cardiac: RRR, no murmur, +S1/S2, No BLE edema Pulmonary: CTA bilaterally, no wheezes, rales or rhonchi, equal chest expansion, unlabored breathing Abdomen: soft, nontender, BS noted, no guarding, no palpable HSM Skin: warm and dry, no visible lesions. Dressing clean and dry. MSK: ROM intact, no joint swelling noted, gait no assessed while in bed. Non tender calf or clubbing, neurovascular intact Neuro: A&Ox3, moves all extremities, no focal deficits, sensation intact, Psych: Appropriate mood and behavior, AOx3 - Patient Status Disposition: Transfer SNF Condition: Good Functional capacity at discharge: uses cane/walker Overall status at discharge: patient is progressing back to baseline - Discharge Instructions Follow Up With: Jude Rincon MD [Non-Partnered Physician] - 09/04/18 10:40 am Additional Instructions: Discharge Instructions: Total Hip Replacement Please call [facility] ([phone]), your Primary Care Physician, or report to the Emergency Room if you have any of the following symptoms: Nausea, vomiting, fever greater that 101.5, swelling, chest pain, shortness of breath, increased pain/redness/drainage/odor for your incision site, numbness/tingling, or any other concerning symptoms. ACTIVITY:Weight-bearing as tolerated for 8 weeks with hip dislocation precautions that physical therapy taught you. You may progress as tolerated under the guidance of your physical therapist. You do not need to sleep with a pillow between your legs. You can also seep on the operative side or on your stomach. Incentive Spirometer 10 times an hour. MEDICATIONS: Upon discharge resume your home medications. Take all the medications as prescribed. Take a stool softener if taking narcotic pain medications. Stool softeners are only effective if you drink enough fluids. Drink 6-8 glass of water or fluids a day, unless this is not allowed for another health problem. Despite using stool softeners, if you haven't had a bowel movement in 3 days, please switch to a gentle laxative. Gentle laxatives are sold over the counter. You should have a bowel movement within 24 hours, if not call the office. You will be discharged from the hospital with a prescription for pain medication. You are encouraged to decrease the use of narcotic pain medication as tolerated. Should you require a refill, please call the office. [facility] prescribes narcotic pain medication for only 4-6 weeks after surgery. If you require pain medication beyond this time period, you may be referred to your Primary Care Physician or to the Pain Clinic for further evaluation. Plan ahead for refills on pain medication as many narcotics either need to be picked up at the office or mailed. It is best to call 48-72 hours in advance of needing a prescription refill so you don't run out of medication. To help control the post-operative pain, you may take NSAIDs (Aleve,Advil, Motrin, ibuprofen, naprosyn) or Tylenol as prescribed on the bottle in addition to the pain medication. ANTICOAGULATION (blood thinners): Continue your Aspirin, Lovenox or Coumadin as prescribed to help prevent a blood clot in the leg or in the lungs. As long as your incision remains dry and you tolerate the NSAIDs (Aleve, Advil, Motrin, Ibuprofen, Naprosyn), it is OK to use the NSAIDS while you are taking your anticoagulation medication. Should your incision start to drain, stop the NSAID and contact our office. Common symptoms of blood clot in the legs include: localized pain, swelling, calf tenderness, redness or discoloration of the skin. Blood clot in the lung symptoms include: shortness of breath, rapid pulse, sweating, and chest pain that worsens with deep breathing, coughing up blood, lightheadedness, feelings of anxiety. If you experience any of these symptoms notify your physician immediately, go to the emergency room, or if having trouble breathing, call 911. WOUND CARE: Leave the dressing on for 7 to 10days. You may change the dressing if it is saturated greater than 50%. Do not get the dressing wet at anytime. Wash your hands with antibacterial soap, rinse and dry prior to any wound care. If you have jaden the visiting nurse or rehab facility can remove the stapes 10-14 days after surgery and place steri-strips across the wound. Leave the steri-strips in place until they fall off on their own. You may let water from the shower run on top of the steri-strips. If you do not have a visiting nurse or rehab facility, you will need to return to the office at 10-14 days for the jaden to be removed. If you have itching or redness around the dressing call the office. FOLLOW-UP: Please follow up with your surgeon in the orthopedic clinic in 6 weeks from the day of surgery. If you have jaden that need to be removed, you will need to come back to the office in 10-14 days from the day of surgery. - Diet and Activity Activity: as per physical therapy, increase activity as tolerated, resume usual activities as tolerated Diet: advance to your usual diet - VTE Documentation of Mechanical Device: Intermittent pneumatic compression device <Manuela Mosqueda - Last Filed: 08/22/18 14:26> Orders not resulted at time of discharge: Pending orders 08/19/18 09:50 XR hip complete LT [XR] Routine Date of Encounter: 08/22/18 - Discharge Diagnosis (1) Fracture, intertrochanteric, left femur Status: Acute Qualifiers: Encounter type: initial encounter Fracture type: closed Fracture alignment: displaced Qualified Code(s): S72.142A - Displaced intertrochanteric fracture of left femur, initial encounter for closed fracture (2) DVT prophylaxis Status: Acute (3) Osteoarthritis Status: Chronic Qualifiers: Osteoarthritis location: hip Osteoarthritis type: primary Laterality: unspecified laterality Qualified Code(s): M16.10 - Unilateral primary osteoarthritis, unspecified hip (4) Anemia Status: Chronic Qualifiers: Anemia type: unspecified type Qualified Code(s): D64.9 - Anemia, unspecified (5) Osteopenia Status: Chronic Qualifiers: Osteopenia location: unspecified Qualified Code(s): M85.80 - Other specified disorders of bone density and structure, unspecified site Hospital course: Ms. Palacios is a 77 year old female - Time Spent with Patient Total time spent providing and/or coordinating discharge services: Time spent: Less than 30 minutes (25 min) Date of admission: 08/19/18 12:19 Primary care physician: Shantell Bryson CNP Consults: 08/18/18 21:46 Consult to Orthopedic Surgery [CONS] Routine Consulting Provider: Jude Rincon Reason for Consult: Left hip Fracture Call Completed: Yes 08/19/18 13:26 Consult to Physical Therapy [CONS] Routine Comment: Evaluate, develop and implement POC Reason for Consult: Status Post Fracture Does patient have active BEDREST order?: No Is patient medically & hemodynamically stable?: Yes Patient assessed for mobility or mobilized this visit?: No 08/19/18 13:27 Consult to Occupational Therapy [CONS] Routine Comment: Evaluate, develop and implement POC Reason for Consult: Status post fracture Does patient have active BEDREST order?: No Is patient medically & hemodynamically stable?: Yes Patient assessed for mobility or mobilized this visit?: No 08/20/18 19:08 Consult to [employer] [CONS] Routine Reason for SW Consult: possible rehab placement - Constitutional Vitals: Temp Pulse Resp BP Pulse Ox 98.0 F 66 18 150/84 98 08/22/18 11:22 08/22/18 11:22 08/22/18 11:22 08/22/18 11:22 08/22/18 11:22 - Attending Attestation I examined this patient and my medical decision-making was reviewed with the Resident Physician Dr Elliott. I agree with the documented findings, disposition and treatment plan as described except to the extent set forth below. Mrs Palacios is admitted for left hip fracture requiring surgical intervention 08/19. She is medically stable for dispo to inpt rehab awake, family visiting. no pain in hip, eating/drinking without difficulty. no issues urinating, + flatus. no abd pain. discharge plan discussed and all questions answered she has been refusing lovenox and is aware of risk of blood lcot, PE, cardiac event/. verbalized good understanding. refused due to easy bleeding/br uising. gen- alert, awake,appears stated age cv- reg rate and rhythm, no le edema, lungs- ctabl, normal reps effort on room air skin- left hip dressing, c/d/i without ecchymosis, neuro- AAOx3 Left Hip fracture s/p IMN 08/19/18 -prn pain control, WBAT, pt/ot, dc to inpt rehab, rec pharm vte ppx but she has been refusing, increase ambulation Left wrist injury XR with osteopenia, no evident fracture, if develops sxs then reimage at that time as given osteopenia she is at risk for fx Acute blood loss anemia pre operatively Hgb 11 with now component of post opera tive blood loss anemia, hgb stable in 9s hemodynamically stable- cbc at rehab in 3-5 days to confirm up trending further diagnoses and plan as noted by resident time spent on discharge 25 min
--- NOTE | 2018-08-22 12:47 | Physician Discharge Referral ---
<Hector Elliott - Last Filed: 08/22/18 12:46> [facility] Referral Info Provider in Charge after Transfer: PCP Institutional Level of Care: Skilled - Diagnosis (1) Fracture, intertrochanteric, left femur Priority: Primary Status: Acute (2) DVT prophylaxis Priority: Secondary Status: Acute (3) Osteoarthritis Priority: Secondary Status: Chronic (4) Anemia Priority: Secondary Status: Chronic (5) Osteopenia Priority: Secondary Status: Chronic - Transfer Medications Prescriptions: Enoxaparin [Lovenox] 30 mg SQ Q12HCO #10 syringe Ibuprofen [Motrin] 400 mg PO Q6HR PRN #10 tablet PRN Reason: Mild To Moderate Pain Home Medications: Levothyroxine [Synthroid] 12.5 mcg PO Q72H 08/18/18 [History] Multivit-Min/Iron/Folic/Lutein [Multivitamin Women 50 Plus Tab] 1 tab PO DAILY 08/19/18 [History] Enoxaparin [Lovenox] 30 mg SQ Q12HCO #10 syringe 08/22/18 [Rx] Ibuprofen [Motrin] 400 mg PO Q6HR PRN #10 tablet 08/22/18 [Rx] Allergies/Adverse Reactions: Allergy/AdvReac Type Severity Reaction Status Date / Time bacitracin Allergy Swelling Verified 08/19/18 14:07 of the Eye cinnamon Allergy Difficulty Verified 08/18/18 14:40 Breathing latex Allergy Difficulty Verified 08/19/18 14:07 Swallowing - Respiratory Orders Smoking Cessation: Smoking cessation has been advised. For more information, call the [place] Tobacco Quit Line at 8-246-EFRP-NOW. - Advance Directives Code Status: Full Code - Mobility Orders Ambulate - Rehabiliation Orders Rehab Orders: Evaluation for Physical Therapy, Evaluation for Occupational Therapy - Diet Orders Regular CERTIFICATION: I certify that the transfer of the above named patient to an Extended Care Facility is necessary for the continuing treatment of the diagnosis listed. The above information is true and accurate reflection of patient's current condition. Confidential - Redisclosure prohibited without a patient's written consent. <Manuela Mosqueda - Last Filed: 08/22/18 14:27> - Diagnosis (1) Fracture, intertrochanteric, left femur Status: Acute (2) DVT prophylaxis Status: Acute (3) Osteoarthritis Status: Chronic (4) Anemia Status: Chronic (5) Osteopenia Status: Chronic - Respiratory Orders Smoking Cessation: Smoking cessation has been advised. For more information, call the [place] Tobacco Quit Line at 5-686-NRRX-NOW. - Lab Orders Lab Orders: CBC (3 days to monitor post op anemia) CERTIFICATION: I certify that the transfer of the above named patient to an Extended Care Facility is necessary for the continuing treatment of the diagnosis listed. The above information is true and accurate reflection of patient's current condition. Confidential - Redisclosure prohibited without a patient's written consent.
== END 2018-08-22 14:43 | DRG 481 ==
LOC: 3NENU → SUATTDRO 20:02
PROVIDERS: ADMIT Internal Medicine Nephrology; ATTEND Internal Medicine